=== PATIENT | male | born 1975 | race Caucasian/White ===

== ENCOUNTER 2019-02-24 18:56 | Emergency (ER) | payer MEDICAID, OTHER ==
[~2019-02-24] VITALS: Ht 172.7 cm; Wt 98.0 kg
[2019-02-24 21:26] VITALS: BP 123/59
== END 2019-02-24 21:28 | disposition home or self-care (01) ==
LOC: ED 19:31
DX: R07.89 Other chest pain (principal)
CPT/HCPCS: 36415; 71046; 80053; 83880; 84484; 85025; 93005; 99284